=== PATIENT | male | born 1955 | race Two or more races ===

== ENCOUNTER 2020-11-11 10:50 | Emergency (ER) | payer OTHER ==
[~2020-11-11] VITALS: Ht 185.4 cm; Wt 95.3 kg
[2020-11-11] MEDS ORDERED: LANTUS SOL100 UNIT/1 (11:33)
[2020-11-11] MEDS ORDERED: JANUVIA50 MG (11:33)
[2020-11-11] MEDS ORDERED: HUMALOG100 UNIT/2 (11:33)
[2020-11-11] MEDS ORDERED: LIPITOR20 MG (11:34)
[2020-11-11] MEDS ORDERED: ECOTRIN81 MG (11:34)
[2020-11-11] MEDS ORDERED: DIALYVITE 800-1 EAC1 (11:35)
[2020-11-11] MEDS ORDERED: KETO10TA2 PO (14:19)
[2020-11-11] MEDS ORDERED: NORFLEX100MG PO (14:19)
== END 2020-11-11 14:41 | disposition home or self-care (01) ==
LOC: ER 10:50
DX: M25.562 Pain in left knee (principal)

== ENCOUNTER 2021-01-18 10:43 | Emergency (ER) | payer OTHER ==
[~2021-01-18] VITALS: Ht 185.4 cm; Wt 95.3 kg
[~2021-01-18 10:43] MED LIST: DIALYVITE 800-1 EAC1; ECOTRIN81 MG; HUMALOG100 UNIT/2; JANUVIA50 MG; KETO10TA2 PO; LANTUS SOL100 UNIT/1; LIPITOR20 MG; NORFLEX100MG PO
[2021-01-18] MEDS ORDERED: NORFLEX100MG PO (15:52)
[2021-01-18] MEDS ORDERED: KETO10TA2 PO (15:52)
== END 2021-01-18 16:07 | disposition home or self-care (01) ==
LOC: ER 10:43
DX: M54.59 Other low back pain (principal)